=== PATIENT | male | born 1995 | race Caucasian/White ===

== ENCOUNTER 2021-09-12 11:08 | Emergency (ER) | payer SELFPAY ==
[2021-09-12 11:32] LABS: BASOPHIL 0.3 % (0-2); EOSINOPHIL 0 % (0-5); HCT 49.3 % (42.0-52.0); HGB 16.9 g/dl (13.2-18.0); LYMPHOCYTE 21.9 % (15-48); MCH 28.7 pg (25.0-31.0); MCHC 34.3 g/dL (32.0-36.0); MCV 83.8 fL (78.0-100.0); MONOCYTE 10.9 % (0-12); MPV 9.8 fL (6.0-9.5); NEUTROPHIL 66.6 % (41-80); NRBC 0; PLT 169 K/uL (150-400); RBC 5.88 M/uL (4.70-6.00); RDW 13.1 % (11.5-14.0); WBC 7.6 K/uL (4.0-10.5)
[2021-09-12 11:54] LABS: ALBUMIN 4.9 g/dL (3.4-5.0); ALKALINE PHOSHATASE 80 U/L (46-116); ALT 43 U/L (16-63); AST 25 U/L (15-37); BILIRUBIN - TOTAL 0.7 mg/dL (0.2-1.0); BUN 18 mg/dL (7-18); BUN/CREAT RATIO (CALC) 15.9 RATIO; CHLORIDE 102 mmol/L (98-107); CO2 (BICARBONATE) 24 mmol/L (21-32); CREATININE 1.13 mg/dL (0.67-1.17); GLOBULIN (CALCULATION) 3.2 g/dL; GLUCOSE 98 mg/dL (74-106); LIPASE 89 U/L (73-393); POTASSIUM 3.8 mmol/L (3.5-5.1); TOTAL PROTEIN 8.1 g/dL (6.4-8.2)
[2021-09-12 12:54] LABS: INFLUENZA A NAA NEGATIVE (NEGATIVE)
[2021-09-12 12:58] LABS: CORONAVIRUS 2019 SARS-COV-2 POSITIVE (NEGATIVE)
[2021-09-12] MEDS ORDERED: CYCLOBENZAPRINE10 MG PO (13:15)
[2021-09-12] MEDS ORDERED: ONDANSETRON ODT4 MG PO (13:15)
== END 2021-09-12 14:21 | disposition home or self-care (01) ==
LOC: FER 11:08
PROVIDERS: Internal Medicine
DX: U07.1 COVID-19 (principal); M62.838 Other muscle spasm
CPT/HCPCS: 36415; 71045; 80053; 83690; 83735; 84145; 84484; 85025; 93005; G0480; J2060; J2550; J7120; U0002